=== PATIENT | male | born 1965 | race Hispanic/Latino ===

== ENCOUNTER 2018-07-01 09:21 | Outpatient (CLI) | payer BC | END 2018-07-01 09:22 | disposition home or self-care (01) | LOC: BICRAD 09:21 | PROVIDERS: ATTEND Family Medicine | DX: M25.511 Pain in right shoulder (principal); M25.512 Pain in left shoulder; M19.011 Primary osteoarthritis, right shoulder ==

== ENCOUNTER 2018-09-17 06:37 | Emergency (ER) | payer BC ==
[2018-09-17] MEDS ORDERED: HYDROcodone/Acetaminophen 5/325 mg Tablet ONE (08:10)
[2018-09-17 08:18] LABS: #Lymphocytes 1.4 thou/uL (1.20-3.40); #Monocytes 1.2 thou/uL (0.11-0.59); #Neutrophils 9.9 thou/uL (1.40-6.50); %Basophils 0.1 % (0.0-1.0); %Eosinophils 0.4 % (0.0-10.0); %Lymphocytes 11.4 % (21.0-51.0); %Monocytes 9.5 % (0.0-10.0); %Neutrophils 78.5 % (42.0-75.0); Hemoglobin 15.2 g/dL (14.0-18.0); Mean Corpuscular HGB CONC 32.5 g/dL (32.0-36.0); Mean Corpuscular Hemoglobin 30.5 pg (27.0-31.0); Mean Platelet Volume 7.1 fL (7.4-10.4); Platelet Count 200 thou/uL (130-400); RBC Distribution Width 11.4 % (11.5-14.5); Red Blood Cell (RBC) Count 4.98 mill/uL (4.70-6.10); White Blood Cell (WBC) Count 12.6 thou/uL (4.8-10.8)
[2018-09-17 08:42] LABS: ALT (SGPT) 43 U/L (8-55); AST (SGOT) 26 U/L (5-34); Albumin 4.2 g/dL (3.5-5.0); Alkaline Phosphatase 68 U/L (40-150); Anion Gap 11 mmol/L (10-20); BUN (Urea Nitrogen) 13 mg/dL (8.4-25.7); Bilirubin, Total 0.8 mg/dL (0.2-1.2); Calc. Creatinine Clearance 0 mL/min (70-130); Calcium 9.4 mg/dL (7.8-10.44); Carbon Dioxide 24 mmol/L (22-29); Chloride 106 mmol/L (98-107); Estimated GFR-MDRD 90; Globulin 3.3 g/dL (2.4-3.5); Glucose 97 mg/dL (70-105); Potassium 4.1 mmol/L (3.5-5.1); Protein, Total 7.5 g/dL (6.0-8.3); Sodium 137 mmol/L (136-145)
[2018-09-17] MEDS ORDERED: Lidocaine 2% PF 5 ML VIAL ONE (10:17)
[2018-09-17] MEDS ORDERED: Lidocaine 1% (PF) 30 ML VIAL ONE (10:18)
[2018-09-17] MEDS ORDERED: Lidocaine 4% Topical Sol 50 ML BOT ONE (10:18)
--- NOTE | 2018-09-17 10:40 | CT ---
CT OF ABDOMEN AND PELVIS PERFORMED WITH CONTRAST ENHANCEMENT: HISTORY: Abdominal pain, rectal pain associated with rectal bleeding. COMPARISON: A gallbladder ultrasound of 04/21/[address] of the chest of 08/05/2002. FINDINGS: The lung bases show evidence for some air trapping suggesting some emphysematous change. There are fatty changes of the liver. There is a hypodense area within the dome of the liver within the right lobe. It has CT Hounsfield unit numbers that would suggest a cyst. It measures approximat rogelio 1.3 cm in size. It is not definitely seen on the prior 2002 CT examination, but it could just be related to its small size. The liver does show a suggestion of fatty change. There is a 2nd focus of enhancement within the right lobe of the liver, axial image 22. This may or may not have been pre sent on the 2002 study. The phase of contrast is slightly different and, therefore, difficult to asc ertain. The liver itself is not enlarged. The spleen is within normal limits. Pancreas region is u nremarkable. The gallbladder has been removed. Right and left adrenal gland and right and left kidneys are normal in size. There is no significant periaortic or mesenteric lymphadenopathy. No adenopathy in the region of the yudi. CT OF PELVIS PERFORMED WITH CONTRAST ENHANCEMENT: There is no pelvic lymphadenopathy or mass. The prostate does not appear significantly enlarged. Di rectly posterior to the rectum or annulus region is a low-attenuation collection. It measures 2.5 cm in size and is possibly a small perirectal abscess. No adjacent inflammatory change within the subc utaneous fat is seen. Review of osseous structures shows some arthritic changes of the spine. IMPRESSION: 1. Two liver lesions. One in the dome of the liver is probably a cyst. It is somewhat difficult to characterize due to its small size. It was not definitely seen on a 2002 study, but I would still f avor it representing a cyst. The 2nd lesion is in the area of enhancement within the right lobe. Th e differential considerations for this would include a HAJA (transient hepatic attenuation difference ) lesion, although it is not in an entirely typical location for this. Other possibilities would inc lude a hemangioma, although the features are not entirely typical and arterial portal shunt related t o cirrhosis would be another possibility. A hepatocellular neoplasm is not excluded. This would need to be further characterized with either CT of the liver done with liver mass protocol or MRI. There are fatty changes of the liver noted. 2. A 2.5 cm probable fluid density collection posterior to the anus. This would correspond to the a lila of patient's pain. It could represent a small infected collection in this region. Its location would suggest that it is probably palpable on rectal examination. POS: [facility]
[2018-09-17] MEDS ORDERED: ISOVUE-370 76%-LOCM 1 ML ONE (11:16)
[2018-09-17] MEDS ORDERED: Clindamycin 150 MG CAP ONE (11:59)
== END 2018-09-17 12:12 | disposition home or self-care (01) ==
LOC: ERS 06:37
DX: K61.1 Rectal abscess (principal); E78.5 Hyperlipidemia, unspecified; I10 Essential (primary) hypertension
CPT/HCPCS: 36415; 46040; 74177; 80053; 85025; 87070; 87077; 87186; 87205; J2001

== ENCOUNTER 2018-09-24 20:34 | Emergency (ER) | payer BC ==
[2018-09-24] MEDS ORDERED: HYDROcodone/Acetaminophen 10/325 mg Tablet ONE (20:52)
[2018-09-24] MEDS ORDERED: Lidocaine 1% PF 5 ML VIAL ONE (20:52)
== END 2018-09-24 22:35 | disposition home or self-care (01) ==
LOC: ERS 20:34
DX: Z48.817 Encounter for surgical aftercare following surgery on the skin and subcutaneous tissue (principal); E78.5 Hyperlipidemia, unspecified; I10 Essential (primary) hypertension
CPT/HCPCS: 10060; J2001

== ENCOUNTER 2018-10-09 13:27 | Outpatient (CLI) | payer BC ==
[2018-10-09] MEDS ORDERED: Gadobenate Dimeglumine 529 MG/1 ML (20ML VIAL) ONE (14:36)
--- NOTE | 2018-10-09 16:26 | MRI ---
MR OF THE ABDOMEN WITH AND WITHOUT IV CONTRAST: 10/09/18 TECHNIQUE: Multiplanar and multisequence MR images were obtained of the abdomen utilizing a liver mass protocol. Comparisons are made with a CT of the abdomen and pelvis dated 09/17/18 without contrast. INDICATION: History of liver mass. TECHNIQUE: Multiplanar and multisequence MRI images were obtained of the abdomen utilizing the liver mass protoc ol. 14 mL of Multihance was utilized for the exam. Comparisons are made with a CT of the abdomen and pelvis dated . FINDINGS: The hypodense lesion involving the right hepatic dome on the prior CT exam is consistent with a cyst. This lesion is T1 hypointense with no appreciable internal enhancement. The abnormal region of enhancement seen on the prior CT exam corresponds to a likely congenital yudi l systemic shunt within the right hepatic lobe. Gallbladder is surgically absent. The liver, spleen, and adrenal glands appear within normal limits. Image detail slightly limited by respiratory motion artifact. No lymphadenopathy is demonstrated. On the arterial phase images, there is a small focus of arterial blush seen within segment VII of the right hepatic lobe measuring 6 mm on image 1024 of series 3. There is no persistent enhancement note d within this region on the delayed phase images. This may reflect a tiny small capillary type ronald ioma. IMPRESSION: 1. Right hepatic dome cyst. 2. Serpiginous lesion seen within the right hepatic lobe corresponds to a portal venous shunt. T hese are usually asymptomatic and not related to underlying liver disease. 3. Small flash filling suspected hemangioma within the right hepatic lobe measuring 6 mm. This i s not completely characterized due to their size and as a conservative measure, a followup MRI examin ation in one year may be helpful to document stability. POS: [facility]
== END 2018-10-09 13:28 | disposition home or self-care (01) ==
LOC: BICMRI 13:27
PROVIDERS: ATTEND Family Medicine
DX: R16.0 Hepatomegaly, not elsewhere classified (principal); K76.89 Other specified diseases of liver
CPT/HCPCS: 74183; A9579

== ENCOUNTER 2019-08-28 15:38 | Emergency (ER) | payer BC, OTHER ==
[~2019-08-28 15:38] MED LIST: ISOVUE-370 76%-LOCM 1 ML ONE
[2019-08-28 16:19] LABS: #Eosinphils 0.2 thou/uL (0.0-0.7); #Lymphocytes 2.2 thou/uL (1.20-3.40); #Monocytes 0.6 thou/uL (0.11-0.59); #Neutrophils 3.9 thou/uL (1.40-6.50); %Basophils 0.3 % (0.0-1.0); %Eosinophils 3.3 % (0.0-10.0); %Lymphocytes 31.3 % (21.0-51.0); %Monocytes 8.7 % (0.0-10.0); %Neutrophils 56.4 % (42.0-75.0); Hemoglobin 16.5 g/dL (14.0-18.0); Mean Corpuscular HGB CONC 34.2 g/dL (32.0-36.0); Mean Corpuscular Hemoglobin 31.5 pg (27.0-31.0); Mean Corpuscular Volume 91.9 fL (78.0-98.0); Mean Platelet Volume 7.4 fL (7.4-10.4); Platelet Count 188 thou/uL (130-400); RBC Distribution Width 11.9 % (11.5-14.5); Red Blood Cell (RBC) Count 5.25 mill/uL (4.70-6.10); White Blood Cell (WBC) Count 6.9 thou/uL (4.8-10.8)
[2019-08-28] MEDS ORDERED: HYDROcodone/Acetaminophen 10/325 mg Tablet ONE (16:25)
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
[2019-08-28 16:39] LABS: ALT (SGPT) 115 U/L (8-55); AST (SGOT) 59 U/L (5-34); Albumin 4.2 g/dL (3.5-5.0); Alkaline Phosphatase 104 U/L (40-110); Anion Gap 11 mmol/L (10-20); BUN (Urea Nitrogen) 14 mg/dL (8.4-25.7); Bilirubin, Total 0.5 mg/dL (0.2-1.2); Calc. Creatinine Clearance 0 mL/min (70-130); Carbon Dioxide 27 mmol/L (22-29); Chloride 106 mmol/L (98-107); Estimated GFR-MDRD 86; Globulin 3.2 g/dL (2.4-3.5); Glucose 107 mg/dL (70-105); Potassium 3.9 mmol/L (3.5-5.1); Protein, Total 7.4 g/dL (6.0-8.3); Sodium 140 mmol/L (136-145)
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
--- NOTE | 2019-08-28 17:26 | CT ---
CT CHEST, ABDOMEN AND PELVIS WITH IV CONTRAST: 08/28/19 Multiple tomograms obtained with IV enhancement following trauma protocol. CT CHEST: There is parenchymal stranding in both lung apices with bilateral apical pleural thickening. There ar e calcified nodules seen in both lungs. There is no evidence of pneumothorax or effusion. No evidence of acute process. Mediastinum unremarkable. Thoracic aorta unremarkable. The bony thorax appears intact. IMPRESSION: There are chronic lung parenchymal changes. No acute lung injury identified. CT ABDOMEN AND PELVIS: There is 1.2 cm low density lesion in the superior liver along the diaphragm which is indeterminate. There is evidence of mild peripheral enhancement. This will need to be further evaluated. Focal area of enhancement in the mid right lobe posteriorly seen on image 55 of 128. This measures up to 2 cm and is indeterminate. This is most consistent with a vascular anomaly, possibly a flash fill ing hemangioma or HAJA (transient hepatic attenuation defect). This will also need to be further eval uated on elective liver workup. Spleen and pancreas unremarkable. Adrenal glands and kidneys unremarkable. Bowel loops unremarkable. Pelvic structures unremarkable. No free fluid or free blood. The abdominal aorta unremarkable. Bony p codi appears intact. IMPRESSION: No evidence of acute injury. CT THORACIC AND LUMBAR SPINE: Sagittal and coronal images of the thoracic and lumbar spine obtained. Thoracic and lumbar vertebrae maintain normal height and alignment. No evidence of compression deform ity. No evidence of fracture identified. IMPRESSION: No evidence of thoracic or lumbar spine fracture or compression. POS: [facility]
== END 2019-08-28 19:10 | disposition home or self-care (01) ==
LOC: ERS 15:38
DX: S16.1XXA Strain of muscle, fascia and tendon at neck level, initial encounter (principal); S29.012A Strain of muscle and tendon of back wall of thorax, initial encounter; S50.01XA Contusion of right elbow, initial encounter; E78.5 Hyperlipidemia, unspecified; E78.00 Pure hypercholesterolemia, unspecified; I10 Essential (primary) hypertension; V03.99XA Pedestrian with other conveyance injured in collision with car, pick-up truck or van, unspecified whether traffic or nontraffic accident, initial encounter
CPT/HCPCS: 70450; 71260; 72125; 74177; 80053; 85025; Q9966

== ENCOUNTER 2019-10-05 11:46 | Outpatient (CLI) | payer BC ==
[~2019-10-05 11:46] MED LIST changes: -ISOVUE-370 76%-LOCM 1 ML ONE; +Magnevist 469MG/ML 20 ML VIAL ONE
--- NOTE | 2019-10-05 15:43 | MRI ---
MRI ABDOMEN WITHOUT AND WITH CONTRAST: Date: 10/05/19 COMPARISON: 10/09/18. CT abdomen dated 08/28/19 and 09/17/18. HISTORY: Lesion seen in liver on prior CT. Hepatic hemangioma. TECHNIQUE: Multiplanar, multisequence MR images were obtained of the abdomen without and with contrast. FINDINGS: The patient is status post cholecystectomy. The common bile duct is enlarged, measuring 13.0 mm. This is likely a reservoir effect from prior cholecystectomy. Mild central intrahepatic biliary dilatatio n is seen. There is a well-circumscribed, nonenhancing focus of low T1 and T2 signal in the right lobe of the li reza near the dome. This is stable and likely represents a cyst. There is a stable portal venous shunt in the posterior aspect of the right lobe of the liver, which is serpiginous in appearance. The prev iously seen questionable abnormal area of enhancement in the more central aspect of the right lobe of the liver is not seen on today's exam and may have been artifactual on the prior exam. No suspicious lesions are seen in the liver. No obvious other enhancing mass is seen to suggest a hemangioma. The kidneys, adrenal glands, spleen, and pancreas are unremarkable. No marrow signal abnormality is s een. No abdominal adenopathy is seen. IMPRESSION: 1. Stable hepatic cyst. 2. Stable portal venous shunt in right lobe of liver. POS: [facility]
== END 2019-10-05 11:47 | disposition home or self-care (01) ==
LOC: BICMRI 11:46
PROVIDERS: ATTEND Family Medicine
DX: D18.03 Hemangioma of intra-abdominal structures (principal); K76.89 Other specified diseases of liver
CPT/HCPCS: 74183; A9579

== ENCOUNTER 2020-12-16 07:40 | Outpatient (CLI) | payer BC ==
[2020-12-16 14:18] LABS: Anion Gap 12 mmol/L (10-20); BUN (Urea Nitrogen) 14 mg/dL (8.4-25.7); Calc. Creatinine Clearance 0 mL/min (70-130); Calcium 9.1 mg/dL (7.8-10.44); Carbon Dioxide 25 mmol/L (22-29); Chloride 107 mmol/L (98-107); Glucose 142 mg/dL (70-105); Potassium 3.9 mmol/L (3.5-5.1); Sodium 140 mmol/L (136-145)
[2020-12-16 14:37] LABS: Hemoglobin 15.5 g/dL (14.0-18.0); Mean Corpuscular Hemoglobin 31.2 PG (27.0-33.0); Mean Corpuscular Volume 91.8 fl (80.0-100.0); Mean Platelet Volume 10.7 fl (7.4-10.4); Platelet Count 202 10x3/uL (130-400); RBC Distribution Width 11.9 % (11.5-14.5); Red Blood Cell (RBC) Count 4.97 10x6/uL (4.40-5.80); White Blood Cell (WBC) Count 6.7 10x3/uL (4.5-11.0)
[2020-12-17 04:13] LABS: SARS-CoV-2 PCR by NAA Not Detected (NotDetected)
--- NOTE | 2020-12-19 10:53 | EKG ---
Test Reason : PREOP Blood Pressure : / mmHG Vent. Rate : 058 BPM Atrial Rate : 058 BPM P-R Int : 192 ms QRS Dur : 094 ms QT Int : 416 ms P-R-T Axes : 076 059 061 degrees QTc Int : 408 ms Sinus bradycardia Otherwise normal ECG No previous ECGs available Confirmed by ARIS PLULIAM ([id number]) on 12/19/2020 10:52:28 AM Referred By: SARAH Confirmed By:ARIS PULLIAM
== END 2020-12-16 07:41 | disposition home or self-care (01) ==
LOC: LABBT 07:40
PROVIDERS: ATTEND Specialist
DX: Z01.818 Encounter for other preprocedural examination (principal); Z01.812 Encounter for preprocedural laboratory examination; K60.3 Anal fistula; K92.1 Melena; Z20.822 Contact with and (suspected) exposure to COVID-19
CPT/HCPCS: 80048; 85027; 87635; 93005; 93010; U0003; U0005

== ENCOUNTER 2020-12-21 07:02 | Day surgery (SDC) | payer BC ==
[2020-12-21] MEDS ORDERED: Acetaminophen 500 MG TAB ONE (07:36)
[2020-12-21] MEDS ORDERED: Ketorolac Tromethamine 30 MG/ML VIAL ONE ×2 (07:36→09:04)
[2020-12-21] MEDS ORDERED: Fentanyl 100 MCG/2 ML VIAL ONE (08:35)
[2020-12-21] MEDS ORDERED: Dexamethasone 20 MG/5 ML VIAL ONE (09:04)
[2020-12-21] MEDS ORDERED: Glycopyrrolate 0.2 MG/ML 5 ML SYRINGE ONE (09:04)
[2020-12-21] MEDS ORDERED: Ondansetron PF 4 MG/2 ML Vial ONE (09:04)
[2020-12-21] MEDS ORDERED: PROPOFOL 200 MG/20 ML VIAL ONE (09:04)
[2020-12-21] MEDS ORDERED: Bupivacaine 0.25% HCL 30 ML VIAL ONE (09:32)
[2020-12-21] MEDS ORDERED: XYLOCAINE 2%-EPI 1:100,000 20 ML VIAL ONE (09:32)
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
== END 2020-12-21 11:45 | disposition home or self-care (01) ==
LOC: SDC 07:02
PROVIDERS: ATTEND Specialist
PROC: 0DJD8ZZ Inspection of Lower Intestinal Tract, Via Natural or Artificial Opening Endoscopic (ICD-10-PCS; principal; 2020-12-21)
DX: K92.1 Melena (principal); K61.1 Rectal abscess; K62.89 Other specified diseases of anus and rectum; I10 Essential (primary) hypertension; E78.5 Hyperlipidemia, unspecified; E66.9 Obesity, unspecified; Z68.30 Body mass index [BMI] 30.0-30.9, adult; Z87.891 Personal history of nicotine dependence; Z79.899 Other long term (current) drug therapy
CPT/HCPCS: J0690; J1100; J1885; J2405; J2704; J3010; S0020